=== PATIENT | female | born 1985 | race Caucasian/White ===

== ENCOUNTER 2020-09-24 08:49 | Outpatient (CLI) | payer OTHER | END 2020-09-24 19:47 | disposition home or self-care (01) | LOC: SUS 08:49 | PROVIDERS: ATTEND Obstetrics & Gynecology | DX: R93.89 Abnormal findings on diagnostic imaging of other specified body structures (principal); N92.6 Irregular menstruation, unspecified | CPT/HCPCS: 76830-TC; 76857 ==